=== PATIENT | female | born 1980 | race Caucasian/White ===

== ENCOUNTER 2017-02-12 14:55 | Emergency (ER) | payer SELFPAY ==
--- NOTE | 2017-02-12 15:29 | Emergency Department Report ---
Chief Complaint: Extremity Injury, Lower Stated Complaint: LT KNEE BURING,LT LEG THROBBING Time Seen by Provider: 02/12/17 15:26 - HPI History of Present Illness: L knee pain x 2 weeks - no injury L 5th toe injury and bruising - ROS Review of Systems: + ambulatory + pain and swelling to toe - Exam Vital Signs: Vital Signs 02/12/17 15:20 Temperature 98.3 F Pulse Rate 116 H Respiratory 16 Rate Blood Pressure 115/87 O2 Sat by Pulse 99 Oximetry Physical Exam: pt looks well, non toxic steady gait MSE screening note: Focused history and physical exam performed. Due to findings the following was ordered: ED Disposition for MSE Condition: Stable
--- NOTE | 2017-02-12 16:56 | XRay Report ---
LEFT KNEE: History: Knee pain The bony architecture is intact without evidence of fracture or dislocation. No significant soft tissue abnormality is seen. IMPRESSION: Normal left knee.
[2017-02-12] MEDS ORDERED: TORADOL IM ONE (19:33)
--- NOTE | 2017-02-12 19:34 | Emergency Department Report ---
ED Lower Extremity HPI - General Chief Complaint: Extremity Injury, Lower Stated Complaint: LT KNEE BURING,LT LEG THROBBING Time Seen by Provider: 02/12/17 15:26 Source: patient Mode of arrival: Ambulatory Limitations: No Limitations - History of Present Illness Initial Comments: 36-year-old female past medical history GERD presents with complaint of 2-3 weeks of left-sided knee pain radiating up left thigh. States that pain is intermittent, slight throbbing sensation. Denies any direct trauma to the left knee area, denies any fever or chills denies any redness skin overlying me. States she's been taking [id number] Motrin and Aleve with minimal relief of her pain. 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 Denies any new exercise any new strenuous activity involving left leg. Patient is ambulatory, states that pain is in front of her knee near her knee And on the side. Denies any other new symptoms. Denies any paresthesias. MD Complaint: knee injury (left knee pain) Onset/Timin -: week(s) Injury: Knee: Left (2-3 weeks of left-sided knee pain) Place: home Severity: moderate Severity scale (0 -10): 6 Improves With: NSAID Associated Symptoms: ambulatory Treatments Prior to Arrival: cold therapy - Related Data Previous Rx's Medication Instructions Recorded Last Taken Type Diclofenac Sodium 50 mg PO TID PRN #30 tablet. 02/12/17 Unknown Rx Allergies Allergy/AdvReac Type Severity Reaction Status Date / Time acetaminophen [From Vicodin] AdvReac Itching Verified 02/12/17 15:26 hydrocodone bitartrate AdvReac Itching Verified 02/12/17 15:26 [From Vicodin] ED Review of Systems ROS: Stated complaint: LT KNEE BURING,LT LEG THROBBING Other details as noted in HPI Constitutional: denies: chills, fever Eyes: denies: eye pain, eye discharge, vision change ENT: denies: ear pain, throat pain Respiratory: denies: cough, shortness of breath, wheezing Cardiovascular: denies: chest pain, palpitations Endocrine: no symptoms reported Gastrointestinal: denies: abdominal pain, nausea, diarrhea Genitourinary: denies: urgency, dysuria, discharge Musculoskeletal: denies: back pain, joint swelling, arthralgia Skin: denies: rash, lesions Neurological: denies: headache, weakness, paresthesias Psychiatric: denies: anxiety, depression Hematological/Lymphatic: denies: easy bleeding, easy bruising ED Past Medical Hx - Past Medical History Previous Medical History?: Yes Additional medical history: reflux - Surgical History Past Surgical History?: Yes Additional Surgical History: hernia 12 weeks ago - Social History Smoking Status: Never Smoker Substance Use Type: Alcohol - Medications Home Medications: Home Medications Medication Instructions Recorded Confirmed Last Taken Type Diclofenac Sodium 50 mg PO TID PRN #30 tablet. 02/12/17 Unknown Rx ED Physical Exam - General Limitations: No Limitations General appearance: alert, in no apparent distress - Head Head exam: Present: atraumatic, normocephalic - Eye Eye exam: Present: normal appearance, PERRL, EOMI - ENT ENT exam: Present: mucous membranes moist - Neck Neck exam: Present: normal inspection - Respiratory Respiratory exam: Present: normal lung sounds bilaterally. Absent: respiratory distress - Cardiovascular Cardiovascular Exam: Present: regular rate, normal rhythm. Absent: systolic murmur, diastolic murmur, rubs, gallop - GI/Abdominal GI/Abdominal exam: Present: soft, normal bowel sounds - Extremities Exam Extremities exam: Present: normal inspection - Expanded Lower Extremity Exam Left Hip exam: Present: normal inspection, full ROM Upper Leg exam: Present: normal inspection, full ROM Knee exam: Present: normal inspection, full ROM (knee flexion and extension intact, no swelling, no calf pain on exam) Lower Leg exam: Present: normal inspection, full ROM Ankle exam: Present: normal inspection, full ROM Foot/Toe exam: Present: normal inspection, full ROM Neuro vascular tendon exam: Present: no vascular compromise (distal dorsalis pedis and posterior tibial pulses are intact) Gait: Positive: observed and normal 1 - Pain on direct palpation here - Back Exam Back exam: Present: normal inspection - Neurological Exam Neurological exam: Present: alert, oriented X3 - Psychiatric Psychiatric exam: Present: normal affect, normal mood - Skin Skin exam: Present: warm, dry, intact, normal color. Absent: rash ED Course Vital Signs 02/12/17 15:20 Temperature 98.3 F Pulse Rate 116 H Respiratory 16 Rate Blood Pressure 115/87 O2 Sat by Pulse 99 Oximetry ED Lower Extremity MDM - Lab Data Result diagrams: 02/12/17 19:42 - Medical Decision Making A/P: Left-sided knee pain, arthralgia, possible patellofemoral syndrome, mild hypokalemia 1- patient has pain with direct palpation of the patellar tendon 2- Wells Criteria:1 points Low risk group for DVT. Unlikely according to Wells DVT studies. Will give patient order for outpatient duplex LLE to be thorough 3- patient has been using Motrin and Tylenol and Aleve. Will give patient a trial of diclofenac when necessary 50 mg 3 times daily; may administer 100 mg as an initial dose, followed by 50 mg 3 times daily as needed 4- I advised patient that she should follow up with primary care to have her potassium checked again. I encouraged her to eat potassium rich foods including fruits and vegetables and electrolyte infused beverages Critical care attestation.: If time is entered above; I have spent that time in minutes in the direct care of this critically ill patient, excluding procedure time. ED Disposition Clinical Impression: Knee pain, left Qualifiers: Chronicity: acute Qualified Code(s): M25.562 - Pain in left knee Patella-femoral syndrome Qualifiers: Laterality: left Qualified Code(s): M22.2X2 - Patellofemoral disorders, left knee Disposition: - TO HOME OR SELFCARE Is pt being admited?: No Does the pt Need Aspirin: No Condition: Stable Instructions: Patellofemoral Pain Syndrome (ED) Additional Instructions: Patient advised to return to [facility] vascular Lab for lower extremity duplex of the left extremity Prescriptions: Diclofenac Sodium 50 mg PO TID PRN #30 tablet.dr WHITT Reason: Pain Referrals: DOROTHY MCKEON [Other] - 3-5 Days MADELAINE ALVAREZ MD [Staff Physician] - 3-5 Days Forms: Work/School Release Form(ED) Time of Disposition: 21:07
[2017-02-12 20:17] LABS: Anion Gap 26 mmol/L; BUN/Creatinine Ratio 18.57; Blood Urea Nitrogen 13 mg/dL (7-17); Calcium 9.2 mg/dL (8.4-10.2); Carbon Dioxide 17 mmol/L (22-30); Chloride 102.2 mmol/L (98-107); Creatine Kinase 189 units/L (30-135); Glucose 78 mg/dL (65-100); Potassium 3.2 mmol/L (3.6-5.0); Sodium 142 mmol/L (137-145)
[2017-02-12] MEDS ORDERED: K-DUR PO ONE (20:51)
[2017-02-12 21:22] VITALS: BP 128/85
--- NOTE | 2017-02-13 08:34 | XRay Report ---
X-RAY THREE VIEWS: 02/12/17 15:26:00 CLINICAL: Trauma and pain. FINDINGS: Suspected minimally displaced fracture of the distal aspect of the proximal phalanx of the fifth toe. Deformity of the bone is identified on 2 views and motion degrades the quality of the third view. No other fracture. The joint spaces are normal. Minimal soft tissue swelling. No soft tissue air or foreign body. IMPRESSION: Acute traumatic minimally displaced closed fracture of the proximal phalanx of the fifth toe.
== END 2017-02-12 21:21 | disposition home or self-care (01) ==
LOC: ED 14:55
DX: M22.2X2 Patellofemoral disorders, left knee (principal)
CPT/HCPCS: 36415; 73562; 73660; 80048; 82550; 96372; 99284; J1885

== ENCOUNTER 2017-02-13 15:02 | Outpatient (CLI) | payer OTHER ==
--- NOTE | 2017-02-15 11:19 | Vascular Lab Report ---
Left Lower Extremity Venous Duplex Study: Reason for Exam: Pain of the left lower extremity. Comments on the Right: A limited duplex study was done of the proximal veins of the right lower extremity. All veins visualized are freely compressible without evidence of internal echogenicity. Flow is spontaneous and phasic throughout. No evidence of acute or chronic thrombus is seen in any of the vessels visualized. Comments on the Left: All veins visualized are freely compressible without evidence of internal echogenicity. Flow is spontaneous and phasic throughout. No evidence of acute or chronic thrombus is seen in any of the vessels visualized. Impression: No evidence of acute or chronic deep venous thrombosis in the left lower extremity.
== END 2017-02-13 15:03 | disposition home or self-care (01) ==
LOC: VAS 15:02
PROVIDERS: ATTEND Physician Assistant
DX: M79.605 Pain in left leg (principal)